=== PATIENT | female | born 1965 | race African-American/Black ===

== ENCOUNTER 2017-11-30 12:31 | Day surgery (SDC) | payer BC ==
[2017-11-30] MEDS ORDERED: MIDAZOLAM 1 MG/ML 2 ML INJ ×2 (15:12)
[2017-11-30] MEDS ORDERED: FENTAnyl 50 MCG/ML VIAL (15:13)
== END 2017-11-30 16:18 | disposition home or self-care (01) ==
LOC: GIL 12:31
DX: Z12.11 Encounter for screening for malignant neoplasm of colon (principal); D50.9 Iron deficiency anemia, unspecified
CPT/HCPCS: 45378; 84703

== ENCOUNTER 2018-03-27 10:03 | Day surgery (SDC) | payer BC ==
[~2018-03-27 10:03] MED LIST: BUPIVACAINE 0.25%/EPI (MDV) 50 ML VIAL INJ; CEFAZOLIN 2 GM/50 ML (PMX) 50 ML IVPB; EPHEDrine SULFATE 50 MG/5 ML SYG; SOD CHLORIDE 0.9% 1,000 ML IV
[2018-03-27] MEDS ORDERED: ROCURONIUM 50 MG INJ (12:42)
[2018-03-27] MEDS ORDERED: PROPOFOL 20 ML (12:42)
[2018-03-27] MEDS ORDERED: CEFAZOLIN 1 GM INJ (12:42)
[2018-03-27] MEDS ORDERED: ROPIVACAINE 0.5 % 30 ML VIAL (12:43)
[2018-03-27] MEDS ORDERED: MIDAZOLAM 1 MG/ML 2 ML INJ (12:43)
[2018-03-27] MEDS: POLYMYXIN/BACITRACIN 1L IRRIG (13:14)
[2018-03-27] MEDS ORDERED: ACETAMINOPHEN 1000MG/100ML IV 100 ML (13:59)
[2018-03-27] MEDS ORDERED: KETOROLAC 30 MG INJ (13:59)
[2018-03-27] MEDS ORDERED: METOCLOPRAMIDE 10 MG INJ (13:59)
[2018-03-27] MEDS ORDERED: ONDANSETRON 4 MG INJ (13:59)
[2018-03-27] MEDS ORDERED: DEXAMETHASONE 4 MG/ML 1 ML INJ (14:00)
[2018-03-27] MEDS ORDERED: SUGAMMADEX SODIUM 200 MG/2 ML VIAL IV (14:00)
[2018-03-27] MEDS ORDERED: LABETALOL HCL 20MG INJ IV (14:30)
[2018-03-27] MEDS ORDERED: MEPERIDINE 25 MG INJ IV (14:30)
[2018-03-27] MEDS ORDERED: OXYCODONE/ACETAMINOPHEN (5/325) TAB PO (14:30)
[2018-03-27] MEDS ORDERED: FENTAnyl 50 MCG/ML VIAL IV ×3 (14:30)
[2018-03-27] MEDS ORDERED: EPHEDrine SULFATE 50 MG/5 ML SYG IV (14:30)
[2018-03-27] MEDS ORDERED: METOCLOPRAMIDE 10 MG INJ IV (14:30)
[2018-03-27] MEDS ORDERED: HYDROmorphONE (0.2 MG/ML) 10ML SYG IV ×3 (14:30)
[2018-03-27] MEDS ORDERED: ONDANSETRON 4 MG INJ IV ×2 (14:30→15:00)
[2018-03-27] MEDS ORDERED: DIPHENHYDRAMINE 50 MG INJ IV (14:30)
[2018-03-27] MEDS ORDERED: KETOROLAC 30 MG INJ IV (15:00)
[2018-03-27] MEDS ORDERED: morphine 2 MG INJ IV (15:00)
[2018-03-27] MEDS ORDERED: HYDROCODONE/APAP (5/325) TAB PO ×2 (15:00)
[2018-03-27] MEDS ORDERED: IBUPROFEN 600 MG TAB PO (15:00)
== END 2018-03-27 18:00 | disposition home or self-care (01) ==
LOC: SDS 10:03
DX: K43.9 Ventral hernia without obstruction or gangrene (principal); K42.9 Umbilical hernia without obstruction or gangrene
CPT/HCPCS: 49560; 71045; 88302; 93005

== ENCOUNTER 2018-07-15 12:06 | Observation (INO) | payer BC ==
[2018-07-15] MEDS: CEFAZOLIN 2 GM/50 ML (PMX) 50 ML IVPB ×2 (12:00→20:08)
[2018-07-15] MEDS: SOD CHLORIDE 0.9% 1,000 ML IV (12:00)
[~2018-07-15 12:06] MED LIST changes: -BUPIVACAINE 0.25%/EPI (MDV) 50 ML VIAL INJ; -CEFAZOLIN 2 GM/50 ML (PMX) 50 ML IVPB; +DEXAMETHASONE 4 MG/ML 1 ML INJ; -EPHEDrine SULFATE 50 MG/5 ML SYG; +FENTAnyl 50 MCG/ML VIAL; +LIDOCAINE 2% (SDV) 5 ML INJ; +METOCLOPRAMIDE 10 MG INJ; +MIDAZOLAM 1 MG/ML 2 ML INJ; +ONDANSETRON 4 MG INJ; +PROPOFOL 20 ML; +ROCURONIUM 50 MG INJ; +ROPIVACAINE 0.5 % 30 ML VIAL; -SOD CHLORIDE 0.9% 1,000 ML IV; +SUCCINYLCHOLINE CHLORIDE 100 MG/5 ML SYG IV
[2018-07-15 13:20] LABS: ADD MAN DIFF? NO
[2018-07-15 13:23] LABS: BASOPHILS % 0.7 % (0.0-2.0); EOSINOPHILS # 0.1 10^3/ul (0.0-0.5); HEMATOCRIT 33.2 % (37.0-47.0); HEMOGLOBIN 10.8 g/dl (12.0-16.0); LYMPHOCYTES # 1.4 10^3/ul (0.8-2.9); LYMPHOCYTES % 25.5 % (15.0-51.0); MEAN CORPUSCULAR HEMOGLOBIN 29.8 pg (29.0-33.0); MEAN CORPUSCULAR HGB CONC 32.5 g/dl (32.0-37.0); MEAN CORPUSCULAR VOLUME 91.7 fl (82.0-101.0); MEAN PLATELET VOLUME 10.6 fl (7.4-10.4); MONOCYTE # 0.4 10^3/ul (0.3-0.9); MONOCYTES % 7.3 % (0.0-11.0); NEUTROPHIL # 3.6 10^3/ul (1.6-7.5); NEUTROPHILS % 64.3 % (39.0-77.0); PLATELET COUNT 278 10^3/UL (140-415); RED BLOOD COUNT 3.62 10^6/ul (4.20-5.40); RED CELL DISTRIBUTION WIDTH 14.6 % (11.5-14.5)
[2018-07-15 13:23] LABS: WHITE BLOOD COUNT 5.6 10^3/ul (4.8-10.8)
[2018-07-15 13:41] LABS: ALANINE AMINOTRANSFERASE 19 IU/L (13-69); ALKALINE PHOSPHATASE 45 IU/L (42-121); ANION GAP 12 (8-16); ASPARTATE AMINO TRANSFERASE 35 IU/L (15-46); BILIRUBIN,INDIRECT 0.7 mg/dl (0-1.1); BILIRUBIN,TOTAL 0.7 mg/dl (0.2-1.3); BLOOD UREA NITROGEN 12 mg/dl (7-20); CALCIUM 9.2 mg/dl (8.4-10.2); CARBON DIOXIDE 24 mmol/L (21-31); CHLORIDE 108 mmol/L (97-110); CREATININE 0.69 mg/dl (0.44-1.00); GLUCOSE 92 mg/dl (70-220); POTASSIUM 4.8 mmol/L (3.5-5.1); SODIUM 139 mmol/L (135-144); TOTAL PROTEIN 7.5 g/dl (6.1-8.1)
[2018-07-15 13:42] LABS: INR 0.96; PROTIME 12.9 Sec (11.9-14.9)
[2018-07-15 13:43] LABS: PARTIAL THROMBOPLASTIN TIME 30.5 Sec (25.0-35.0)
[2018-07-15] MEDS ORDERED: FENTAnyl 50 MCG/ML VIAL IV ×2 (14:00)
[2018-07-15] MEDS ORDERED: HYDROmorphONE 1 MG/5 ML IV SYRINGE IV ×3 (14:00)
[2018-07-15] MEDS ORDERED: SUGAMMADEX SODIUM 200 MG/2 ML VIAL IV (14:05)
[2018-07-15 14:13] LABS: ALBUMIN 4.2 g/dl (3.3-4.9); ALBUMIN/GLOBULIN RATIO 1.27
[2018-07-15] MEDS: BUPIVACAINE 0.25%/EPI (SDV) 30 ML INJ (14:18)
[2018-07-15] MEDS ORDERED: morphine SULFATE/PF (10 MG/10 ML) INJ (16:48)
[2018-07-15] MEDS ORDERED: ACETAMINOPHEN 325 MG TAB PO (17:30)
[2018-07-15] MEDS ORDERED: IBUPROFEN 600 MG TAB PO (17:30)
[2018-07-15] MEDS ORDERED: ONDANSETRON 4 MG INJ IV ×2 (17:30→18:30)
[2018-07-15] MEDS ORDERED: CEFAZOLIN 2 GM/50 ML (PMX) 50 ML IVPB (17:30)
[2018-07-15] MEDS ORDERED: OXYCODONE/ACETAMINOPHEN (5/325) TAB PO (17:30)
[2018-07-15] MEDS ORDERED: KETOROLAC 30 MG INJ IV ×2 (17:30→18:30)
[2018-07-15] MEDS ORDERED: morphine 4 MG/ML VIAL IV (18:00)
[2018-07-15] MEDS ORDERED: ZOLPIDEM 5 MG TAB PO (18:30)
[2018-07-15] MEDS ORDERED: NALOXONE (0.4 MG/ML) INJ IV (18:30)
[2018-07-15] MEDS ORDERED: HYDROmorphONE 0.5 MG/0.5 ML SYG IV ×2 (18:30)
[2018-07-15] MEDS ORDERED: DIPHENHYDRAMINE 50 MG INJ IV (18:30)
[2018-07-15] MEDS: DEXTROSE 5%-0.45% NACL 1,000 ML IV (19:55)
[2018-07-15] MEDS: FAMOTIDINE 20 MG INJ IV (21:16)
[2018-07-15] MEDS: OXYCODONE/ACETAMINOPHEN (5/325) TAB PO (23:36)
[2018-07-16] MEDS: DEXTROSE 5%-0.45% NACL 1,000 ML IV ×2 (04:00→06:55)
[2018-07-16] MEDS: CEFAZOLIN 2 GM/50 ML (PMX) 50 ML IVPB ×2 (04:15→11:48)
[2018-07-16 05:41] LABS: ADD MAN DIFF? NO
[2018-07-16 05:49] LABS: WHITE BLOOD COUNT 12.1 10^3/ul (4.8-10.8)
[2018-07-16 05:49] LABS: BASOPHILS % 0.2 % (0.0-2.0); HEMATOCRIT 33.7 % (37.0-47.0); HEMOGLOBIN 10.7 g/dl (12.0-16.0); LYMPHOCYTES # 0.6 10^3/ul (0.8-2.9); LYMPHOCYTES % 5.2 % (15.0-51.0); MEAN CORPUSCULAR HEMOGLOBIN 30.2 pg (29.0-33.0); MEAN CORPUSCULAR HGB CONC 31.8 g/dl (32.0-37.0); MEAN CORPUSCULAR VOLUME 95.2 fl (82.0-101.0); MEAN PLATELET VOLUME 10.6 fl (7.4-10.4); MONOCYTE # 0.6 10^3/ul (0.3-0.9); MONOCYTES % 4.9 % (0.0-11.0); NEUTROPHIL # 10.8 10^3/ul (1.6-7.5); NEUTROPHILS % 89.3 % (39.0-77.0); PLATELET COUNT 282 10^3/UL (140-415); RED BLOOD COUNT 3.54 10^6/ul (4.20-5.40); RED CELL DISTRIBUTION WIDTH 14.8 % (11.5-14.5)
[2018-07-16 06:08] LABS: ANION GAP 14 (8-16); BLOOD UREA NITROGEN 9 mg/dl (7-20); CALCIUM 8.8 mg/dl (8.4-10.2); CARBON DIOXIDE 26 mmol/L (21-31); CHLORIDE 106 mmol/L (97-110); GLUCOSE 137 mg/dl (70-220); POTASSIUM 4.5 mmol/L (3.5-5.1); SODIUM 141 mmol/L (135-144)
[2018-07-16] MEDS: OXYCODONE/ACETAMINOPHEN (5/325) TAB PO (08:50)
[2018-07-16] MEDS: FAMOTIDINE 20 MG INJ IV (09:00)
== END 2018-07-16 18:25 | disposition home or self-care (01) ==
LOC: SDS 12:06 → REC 18:37 → MS1 19:40
DX: K43.9 Ventral hernia without obstruction or gangrene (principal)
CPT/HCPCS: 49652; 71045; 80048; 80053; 85025; 85610; 85730; 88302; 93005; 99217